=== PATIENT | male | born 1975 | race American Indian/Alaskan Native ===

== ENCOUNTER 2018-12-16 19:21 | Emergency (ER) | payer MEDICAID ==
--- NOTE | 2018-12-16 19:43 | EDM.PDOC ---
ED HPI GENERAL MEDICAL PROBLEM - General Chief Complaint: Lower Extremity Injury/Pain Stated Complaint: LEG IS BRUISED AND GROWING,JUST HAD SURG Time Seen by Provider: 12/16/18 19:43 Source of Information: Reports: Patient History Limitations: Reports: No Limitations - History of Present Illness INITIAL COMMENTS - FREE TEXT/NARRATIVE: s/p right knee surgery Dr Liliana DELCID @ Wed and today noticed inner right thigh bruising then got bigger throughout the day and now feels tight and painful. denies trauma tp area. Right Knee Pain Score (Numeric/FACES): 8 - Related Data Allergies Allergy/AdvReac Type Severity Reaction Status Date / Time Penicillins Allergy Cannot Verified 12/16/18 19:32 Remember Home Meds: Home Meds Acetaminophen 325 mg PO Q6H PRN 12/16/18 [History] Acetaminophen/oxyCODONE [Percocet 325-5 MG] 1 tab PO Q8H PRN 12/16/18 [History] Aspirin [Ecotrin] 325 mg PO BIDMEALS 12/16/18 [History] Hydrochlorothiazide [Microzide] 25 mg PO DAILY 12/16/18 [History] Ibuprofen 400 mg PO Q6H PRN 12/16/18 [History] Lisinopril 20 mg PO DAILY 12/16/18 [History] Sennosides/Docusate Sodium [Senna-Docusate Sodium Tablet] 2 tab PO DAILY [History] Past Medical History - Past Surgical History Other HEENT Surgeries/Procedures: saliva gland surgery, eye surgery Other Musculoskeletal Surgeries/Procedures:: elbow surgery Review of Systems - Review of Systems Review Of Systems: ROS reveals no pertinent complaints other than HPI. ED EXAM, GENERAL - Physical Exam Exam: See Below Exam Limited By: No Limitations General Appearance: Alert, WD/WN, No Apparent Distress, Anxious, Other (upset) Ears: Hearing Grossly Normal Throat/Mouth: Normal Voice, No Airway Compromise Head: Atraumatic Neck: Non-Tender, Full Range of Motion Respiratory/Chest: No Respiratory Distress Cardiovascular: Regular Rate, Rhythm GI/Abdominal: Soft, Non-Tender Extremities: Other (right thigh medial haematoma, tender R/P, NV wnl, gait limited to pain. ) Neurological: Alert, Oriented, Normal Cognition, Normal Gait, No Motor/Sensory Deficits Psychiatric: Normal Affect, Normal Mood Skin Exam: Warm, Dry, Normal Color Lymphatic: No Adenopathy Course - Vital Signs Last Recorded V/S: Last Vital Signs Temp 37.0 C 12/16/18 19:39 Pulse 117 H 12/16/18 19:39 Resp 16 12/16/18 19:39 BP 147/100 H 12/16/18 19:39 Pulse Ox 99 12/16/18 19:39 - Orders/Labs/Meds Orders: Active Orders 24 hr Category Date Time Status Acetaminophen/HYDROcodone [[place] 325-10 MG] Med 12/16/18 21:38 Once 1 tab PO ONETIME ONE Labs: Laboratory Tests 12/16/18 12/16/18 12/16/18 Range/Units 19:35 19:35 19:35 WBC 19.3 H (5.0-10.0) 10^3/uL RBC 4.74 (4.6-6.2) 10^6/uL Hgb 15.3 (14.0-18.0) g/dL Hct 44.9 (40.0-54.0) % MCV 94.7 (80-100) fL MCH 32.3 (27.0-34.0) pg MCHC 34.1 (33.0-35.0) g/dL Plt Count 324 (150-450) 10^3/uL Neut % (Auto) 66.4 (42.2-75.2) % Lymph % (Auto) 22.0 (20.5-50.1) % Cherry % (Auto) 6.8 (2-8) % Eos % (Auto) 4.4 H (1.0-3.0) % Baso % (Auto) 0.4 (0.0-1.0) % Add Manual Diff Yes Neutrophils % (Manual) 58 (42-75) % Band Neutrophils % 4 % Lymphocytes % (Manual) 24 (20-50) % Atypical Lymphs % 0 % Monocytes % (Manual) 8 (2-8) % Eosinophils % (Manual) 6 H (1-3) % Basophils % (Manual) 0 Toxic Granulation 2+ moderate PT 9.2 (9.0-12.0) SEC INR 0.9 (0.9-1.2) APTT 26.0 (22.0-34.0) SEC Sodium 138 (135-145) mmol/L Potassium 3.8 (3.6-5.0) mmol/L Chloride 106 (101-111) mmol/L Carbon Dioxide 22.0 (21.0-31.0) mmol/L Anion Gap 13.8 BUN 22 H (7-18) mg/dL Creatinine 1.1 (0.6-1.3) mg/dL Est Cr Clr Drug Dosing 85.70 mL/min Estimated GFR (MDRD) > 60 BUN/Creatinine Ratio 20.00 Glucose 120 H (74-105) mg/dL Calcium 8.6 (8.4-10.2) mg/dl Total Bilirubin 0.5 (0.2-1.0) mg/dL AST 19 (10-42) IU/L ALT 18 (10-60) IU/L Alkaline Phosphatase 50 (42-121) IU/L C-Reactive Protein (0.0-1.3) mg/dL Total Protein 7.3 (6.7-8.2) g/dl Albumin 4.0 (3.2-5.5) g/dl Globulin 3.3 Albumin/Globulin Ratio 1.21 // Range/Units 19:45 WBC (5.0-10.0) 10^3/uL RBC (4.6-6.2) 10^6/uL Hgb (14.0-18.0) g/dL Hct (40.0-54.0) % MCV (80-100) fL MCH (27.0-34.0) pg MCHC (33.0-35.0) g/dL Plt Count (150-450) 10^3/uL Neut % (Auto) (42.2-75.2) % Lymph % (Auto) (20.5-50.1) % Cherry % (Auto) (2-8) % Eos % (Auto) (1.0-3.0) % Baso % (Auto) (0.0-1.0) % Add Manual Diff Neutrophils % (Manual) (42-75) % Band Neutrophils % % Lymphocytes % (Manual) (20-50) % Atypical Lymphs % % Monocytes % (Manual) (2-8) % Eosinophils % (Manual) (1-3) % Basophils % (Manual) Toxic Granulation PT (9.0-12.0) SEC INR (0.9-1.2) APTT (22.0-34.0) SEC Sodium (135-145) mmol/L Potassium (3.6-5.0) mmol/L Chloride (101-111) mmol/L Carbon Dioxide (21.0-31.0) mmol/L Anion Gap BUN (7-18) mg/dL Creatinine (0.6-1.3) mg/dL Est Cr Clr Drug Dosing mL/min Estimated GFR (MDRD) BUN/Creatinine Ratio Glucose (74-105) mg/dL Calcium (8.4-10.2) mg/dl Total Bilirubin (0.2-1.0) mg/dL AST (10-42) IU/L ALT (10-60) IU/L Alkaline Phosphatase (42-121) IU/L C-Reactive Protein 2.9 H (0.0-1.3) mg/dL Total Protein (6.7-8.2) g/dl Albumin (3.2-5.5) g/dl Globulin Albumin/Globulin Ratio - Re-Assessments/Exams Free Text/Narrative Re-Assessment/Exam: 12/16/18 21:[address] Rangel who states the haematoma is due the tourniquet used during the procedure which the pt states had the same problem occurring from another procedure. Departure - Departure Time of Disposition: 21:39 Disposition: Home, Self-Care 01 Condition: Good Clinical Impression: Thigh hematoma Qualifiers: Encounter type: initial encounter Laterality: right Qualified Code(s): S70.11XA - Contusion of right thigh, initial encounter - Discharge Information Forms: ED Department Discharge Additional Instructions: 1) elevate leg as much as possible tonight 2) call Dr Gonzalez office tomorrow if not significantly improve - My Orders Last 24 Hours: My Active Orders 12/16/18 21:38 Acetaminophen/HYDROcodone [[place] 325-10 MG] 1 tab PO ONETIME ONE - Assessment/Plan Last 24 Hours: My Active Orders 12/16/18 21:38 Acetaminophen/HYDROcodone [[place] 325-10 MG] 1 tab PO ONETIME ONE
[2018-12-16 19:48] VITALS: BP 147/100
[2018-12-16 20:15] LABS: ANION GAP 13.8; CHLORIDE,CL 106 mmol/L (101-111); SODIUM,NA 138 mmol/L (135-145)
[2018-12-16] MEDS ORDERED: Acetaminophen/HYDROcodone 325-10 MG Tab PO ONE (21:38)
== END 2018-12-16 21:45 | disposition home or self-care (01) ==
LOC: DL.ED 19:21
DX: M79.81 Nontraumatic hematoma of soft tissue (principal); Z88.0 Allergy status to penicillin; Z79.82 Long term (current) use of aspirin; Z79.899 Other long term (current) drug therapy; Z98.890 Other specified postprocedural states
CPT/HCPCS: 36415; 73552; 80053; 85025; 85610; 85730; 86140; 99283; A9270

== ENCOUNTER 2021-12-16 15:22 | Emergency (ER) | payer BC ==
[2021-12-16 18:16] VITALS: BP 178/127; PULSE 97
[2021-12-16] MEDS ORDERED: Diphtheria,Pertussis(Acell),Tetanus Vaccine 0.5 ML Syringe IM ONE (18:37)
[2021-12-16] MEDS ORDERED: Bacitracin Oint 1 GM U/D Packet TOP ONE (18:55)
== END 2021-12-16 19:30 | disposition home or self-care (01) ==
LOC: DL.ED 15:22
DX: S61.204A Unspecified open wound of right ring finger without damage to nail, initial encounter (principal); S60.414A Abrasion of right ring finger, initial encounter; I10 Essential (primary) hypertension; Z79.899 Other long term (current) drug therapy; Z88.0 Allergy status to penicillin; Z23 Encounter for immunization; W23.1XXA Caught, crushed, jammed, or pinched between stationary objects, initial encounter
CPT/HCPCS: 73140-F8; 90471; 90715; 99283